=== PATIENT | female | born 1980 | race Hispanic/Latino ===

== ENCOUNTER 2017-01-04 21:08 | Emergency (ER) | payer OTHER ==
[2017-01-04 21:30] VITALS: BMI 35.3
[2017-01-04 21:37] VITALS: RESP 20; TEMP 98.4
--- NOTE | 2017-01-04 21:50 | ED PDOC ---
Arrival/HPI - General Chief Complaint: Cough, Cold, Congestion Time Seen by Provider: 01/04/17 21:50 - History of Present Illness Narrative History of Present Illness (Text): 01/04/17 21:50 Patient is a 36 y/o F presenting with cough x 5 days. She reports that she gets a similar cough yearly that she reports are "triggered by allergies." She denies fever, chills, chest pain, shortness of breath. She is requesting phenergen with codeine because she reports that she cannot sleep due to her cough. Past Medical History - Infectious Disease Hx of Infectious Diseases: None - Tetanus Immunization Tetanus Immunization: Unknown - Past Medical History Past Medical History: No Previous - Cardiac Hx Cardiac Disorders: No - Pulmonary Hx Asthma: Yes - Neurological Hx Migraine: Yes - HEENT Hx HEENT Disorder: No - Renal Hx Renal Disorder: No - Endocrine/Metabolic Hx Endocrine Disorders: No - Hematological/Oncological Hx Blood Disorders: No - Integumentary Hx Dermatological Disorder: No - Musculoskeletal/Rheumatological Hx Back Pain: Yes (chronic) - Gastrointestinal Hx Gastrointestinal Disorders: No - Genitourinary/Gynecological Hx Genitourinary Disorders: No - Psychiatric Hx Psychophysiologic Disorder: No Hx Substance Use: No - Past Surgical History Past Surgical History: No Previous - Anesthesia Hx Anesthesia: No Hx Anesthesia Reactions: No Hx Malignant Hyperthermia: No - Suicidal Assessment Feels Threatened In Home Enviroment: No Family/Social History Family/Social History: No Known Family HX Smoking Status: Heavy Smoker > 10 Cigarettes Daily Hx Alcohol Use: Yes Hx Substance Use: No Hx Substance Use Treatment: No Allergies/Home Meds Allergies/Adverse Reactions: Allergies No Known Allergies Allergy (Verified 10/13/15 19:21) Home Medications: Home Meds Medication Instructions Recorded Confirmed Oxycodone HCl [Oxycontin] 30 mg PO TID 07/04/15 10/13/15 Review of Systems - Review of Systems Constitutional: absent: Fatigue, Weight Change, Fevers Respiratory: Cough. absent: SOB, Sputum, Wheezing Cardiovascular: absent: Chest Pain, Palpitations, Edema, Calf Pain, WORLEY, Orthopnea, Syncope Gastrointestinal: absent: Abdominal Pain, Constipation, Diarrhea, Nausea, Vomiting Genitourinary Female: absent: Dysuria Musculoskeletal: absent: Arthralgias Skin: absent: Rash Physical Exam Vital Signs Temp Pulse Resp BP Pulse Ox 01/04/17 22:31 87 20 108/57 L 95 01/04/17 21:08 98.4 F 115 H 20 107/58 L 97 Temperature: Afebrile Blood Pressure: Normal Pulse: Regular Respiratory Rate: Normal Appearance: Positive for: Well-Appearing, Non-Toxic, Comfortable Pain Distress: None Mental Status: Positive for: Alert and Oriented X 3 - Systems Exam Head: Present: Atraumatic, Normocephalic Pupils: Present: PERRL Extroacular Muscles: Present: EOMI Conjunctiva: Present: Normal Mouth: Present: Moist Mucous Membranes Neck: Present: Normal Range of Motion Respiratory/Chest: Present: Clear to Auscultation, Good Air Exchange. No: Respiratory Distress, Accessory Muscle Use Cardiovascular: Present: Regular Rate and Rhythm, Normal S1, S2. No: Murmurs Abdomen: No: Tenderness, Distention Upper Extremity: Present: Normal Inspection Lower Extremity: Present: Normal Inspection Neurological: Present: GCS=15, CN II-XII Intact, Speech Normal Skin: Present: Warm, Dry. No: Rashes Psychiatric: Present: Alert, Oriented x 3 Medical Decision Making ED Course and Treatment: 01/04/17 22:22 Hung's symptoms are consistent with uri. She is afebrile and well appearing with lungs cta b/l with cough x 5 days. There are no indications for imaging. Patient is requesting cough medication and reports that she will follow-up with PMD - Medication Orders Current Medication Orders: Discontinued Medications Promethazine HCl/Codeine (Phenergan/Codeine Oral Syrup) 5 ml PO STAT STA Stop: 01/04/17 21:54 Last Admin: 01/04/17 22:08 Dose: 5 ml Disposition/Present on Arrival - Present on Arrival Any Indicators Present on Arrival: No History of DVT/PE: No History of Uncontrolled Diabetes: No Urinary Catheter: No History of Decub. Ulcer: No History Surgical Site Infection Following: None - Disposition Have Diagnosis and Disposition been Completed?: Yes Diagnosis: Cough Disposition: HOME/ ROUTINE Disposition Time: 21:51 Patient Plan: Discharge Condition: GOOD Discharge Instructions (ExitCare): Acute Cough (ED) Additional Instructions: Return immediately with any worsening symptoms. Follow-up with PMD within 2 days. Take medication as needed for cough Prescriptions: Promethazine/Codeine [Phenergan/Codeine Oral Syrup] 5 ml PO Q6 #1 bottle Referrals: Jerad Cabello JD, MD [Primary Care Provider] - Follow up with primary Forms: [facility] (Danish)
[2017-01-04] MEDS ORDERED: Promethazine/Cod 6.25mg-10mg/5ml Syr UD PO STA (21:53)
[2017-01-04 22:32] VITALS: BP 108/57; PULSE 87; O2SAT 95
== END 2017-01-04 22:33 | disposition home or self-care (01) ==
LOC: ED 21:08
DX: R05 Cough (principal)

== ENCOUNTER 2017-08-02 19:52 | Emergency (ER) | payer OTHER ==
[2017-08-02 20:24] VITALS: BMI 34.9
[2017-08-02 20:30] VITALS: TEMP 98.5
[2017-08-02 20:33] VITALS: O2SAT 99
--- NOTE | 2017-08-02 21:42 | ED PDOC ---
Arrival/HPI - General Chief Complaint: Female Genitourinary Time Seen by Provider: 08/02/17 21:39 Historian: Patient - History of Present Illness Narrative History of Present Illness (Text): 08/02/17 21:39 36yo female who present for evaluation of a lump protruding from her vagina this evening. Patient states she noticed a lump from her vagina this evening and had associated left flank pain. States the pain resolved after few minutes and the lump went back inside her vagina. She denies previous history, nausea, vomiting, diarrhea, fever, chills, urinary symptoms, any other complaint. Past Medical History - Provider Review Nursing Documentation Reviewed: Yes - Infectious Disease Hx of Infectious Diseases: None - Tetanus Immunization Tetanus Immunization: Unknown - Past Medical History Past Medical History: No Previous - Cardiac Hx Cardiac Disorders: No - Pulmonary Hx Asthma: Yes - Neurological Hx Migraine: Yes - HEENT Hx HEENT Disorder: No - Renal Hx Renal Disorder: No - Endocrine/Metabolic Hx Endocrine Disorders: No - Hematological/Oncological Hx Blood Disorders: No - Integumentary Hx Dermatological Disorder: No - Musculoskeletal/Rheumatological Hx Back Pain: Yes (chronic) - Gastrointestinal Hx Gastrointestinal Disorders: No - Genitourinary/Gynecological Hx Genitourinary Disorders: No - Psychiatric Hx Psychophysiologic Disorder: No Hx Substance Use: No - Past Surgical History Past Surgical History: No Previous - Anesthesia Hx Anesthesia: No Hx Anesthesia Reactions: No Hx Malignant Hyperthermia: No - Suicidal Assessment Feels Threatened In Home Enviroment: No Family/Social History - Physician Review Nursing Documentation Reviewed: Yes Family/Social History: Unknown Family HX Smoking Status: Heavy Smoker > 10 Cigarettes Daily Hx Alcohol Use: Yes Hx Substance Use: No Hx Substance Use Treatment: No Allergies/Home Meds Allergies/Adverse Reactions: Allergies No Known Allergies Allergy (Verified 08/02/17 20:24) Home Medications: Home Meds Medication Instructions Recorded Confirmed Oxycodone HCl [Oxycontin] 30 mg PO TID 07/04/15 08/02/17 Loratadine [Claritin] 10 mg PO PRN PRN 08/02/17 08/02/17 Review of Systems - Physician Review All systems were reviewed & negative as marked: Yes - Review of Systems Constitutional: Normal Eyes: Normal ENT: Normal Respiratory: Normal Cardiovascular: Normal Gastrointestinal: Abdominal Pain. absent: Constipation, Diarrhea, Nausea, Vomiting, Hematochezia, Hematemesis Genitourinary Female: Other (Vaginal bump) Musculoskeletal: Normal Skin: Normal Neurological: Normal Endocrine: Normal Hemo/Lymphatic: Normal Psychiatric: Normal Physical Exam Vital Signs Reviewed: Yes Vital Signs Temp Pulse Resp BP Pulse Ox 08/02/17 22:05 89 16 137/82 99 08/02/17 20:30 98.5 F 93 H 18 143/85 99 08/02/17 20:29 98.5 F 101 H 18 143/85 98 Temperature: Afebrile Blood Pressure: Normal Pulse: Regular Respiratory Rate: Normal Appearance: Positive for: Well-Appearing, Non-Toxic, Comfortable Pain Distress: None Mental Status: Positive for: Alert and Oriented X 3 - Systems Exam Head: Present: Atraumatic, Normocephalic Pupils: Present: PERRL Extroacular Muscles: Present: EOMI Conjunctiva: Present: Normal Mouth: Present: Moist Mucous Membranes Neck: Present: Normal Range of Motion Respiratory/Chest: Present: Clear to Auscultation, Good Air Exchange. No: Respiratory Distress, Accessory Muscle Use Cardiovascular: Present: Regular Rate and Rhythm, Normal S1, S2. No: Murmurs Abdomen: Present: Normal Bowel Sounds, Other (Soft). No: Tenderness, Distention , Peritoneal Signs, Rebound, Guarding, McBurney's Point Tender, Rovsing's Sign Present Genitourinary/Pelvic Exam: Present: Normal External Genitalia. No: Vaginal Discharge, Vaginal Bleeding, Vaginal Lesions Back: Present: Normal Inspection Upper Extremity: Present: Normal Inspection. No: Cyanosis, Edema Lower Extremity: Present: Normal Inspection. No: Edema Neurological: Present: GCS=15, CN II-XII Intact, Speech Normal Skin: Present: Warm, Dry, Normal Color. No: Rashes Psychiatric: Present: Alert, Oriented x 3, Normal Insight, Normal Concentration Disposition/Present on Arrival - Present on Arrival Any Indicators Present on Arrival: No History of DVT/PE: No History of Uncontrolled Diabetes: No Urinary Catheter: No History of Decub. Ulcer: No History Surgical Site Infection Following: None - Disposition Have Diagnosis and Disposition been Completed?: Yes Diagnosis: Normal vaginal exam, Vaginal prolapse Disposition: HOME/ ROUTINE Disposition Time: 21:45 Patient Plan: Discharge Condition: STABLE Additional Instructions: Follow up with your CONTROL CLERK [employer] Return to ED for any new symptoms Referrals: Jerad Cabello JD, MD [Primary Care Provider] - Follow up with primary Forms: [facility] (Swedish)
[2017-08-02 22:06] VITALS: BP 137/82; PULSE 89; RESP 16
== END 2017-08-02 22:06 | disposition home or self-care (01) ==
LOC: ED 19:52
DX: N81.10 Cystocele, unspecified (principal)

== ENCOUNTER 2018-05-17 00:03 | Emergency (ER) | payer OTHER ==
[2018-05-17 00:19] VITALS: BMI 40.8
[2018-05-17 00:23] VITALS: TEMP 99.8
[2018-05-17] MEDS ORDERED: Sodium Chloride 0.9% 1,000 ML IV STA (00:54)
[2018-05-17] MEDS ORDERED: Morphine 4 mg/ml ISec IVP STA (00:54)
[2018-05-17 01:23] LABS: BASO # 0.02 K/mm3 (0.0-2.0); BASO % 0.3 % (0.0-3.0); EOS # 0.1 (0.0-0.7); EOS % 0.8 % (1.5-5.0); GRAN # 4.46 (1.4-6.5); GRAN % 62.6 % (50.0-68.0); LYMPH # 1.9 (1.2-3.4); LYMPH % 26.1 % (22.0-35.0); MEAN CELL VOLUME 90.2 fl (80.0-105.0); MEAN CORPUSCULAR HEMOGLOBIN 29.8 pg (25.0-35.0); MEAN PLATELET VOLUME 9.7 fl (7.0-11.0); MONO # 0.7 (0.1-0.6); MONO % 10.2 % (1.0-6.0); RBC 4.7 10^6/uL (3.5-6.1); RED CELL DISTRIBUTION WIDTH 12.1 % (11.5-14.5); WHITE BLOOD COUNT 7.1 10^3/uL (4.5-11.0)
[2018-05-17 01:26] LABS: ALB/GLOB RATIO 1.2 (1.1-1.8); ALBUMIN 4.3 g/dL (3.0-4.8); ALT/SGPT 29 U/L (7-56); AST/SGOT 26 U/L (14-36); BLOOD UREA NITROGEN 9 mg/dL (7-21); CALCIUM 10.1 mg/dL (8.4-10.5); GFR NON-AFRICAN AMERICAN > 60
[2018-05-17 02:20] LABS: OPIATES, UR NEGATIVE (NEGATIVE)
[2018-05-17 02:37] LABS: BARBITURATES, UR NEGATIVE (NEGATIVE); BENZODIAZEPINES, UR NEGATIVE (NEGATIVE); PHENCYCLIDINE, UR NEGATIVE (NEGATIVE)
--- NOTE | 2018-05-17 03:21 | ED PDOC ---
Arrival/HPI - General Chief Complaint: Medical Clearance Time Seen by Provider: 05/17/18 00:11 Historian: Patient - History of Present Illness Narrative History of Present Illness (Text): 05/17/18 04:32 37 year old female, with no significant past medical history, presents to the emergency department with body aches, diarrhea, and nausea, for a day and a half. Patient informs that she takes oxycodone 3-4 times a day for the past several years. Patient states she recently moved and hasn't taken it for a day and a half. Patient states her appetite has been fair and denies any recent travel or sick contact. Patient denies any fever, cough, vomiting, or any other complaints. Time/Duration: Prior to Arrival, 24 hours Symptom Onset: Gradual Symptom Course: Unchanged Quality: Aching Activities at Onset: Light Past Medical History - Provider Review Nursing Documentation Reviewed: Yes - Infectious Disease Hx of Infectious Diseases: None - Tetanus Immunization Tetanus Immunization: Unknown - Past Medical History Past Medical History: No Previous - Cardiac Hx Cardiac Disorders: No - Pulmonary Hx Asthma: Yes - Neurological Hx Migraine: Yes - HEENT Hx HEENT Disorder: No - Renal Hx Renal Disorder: No - Endocrine/Metabolic Hx Endocrine Disorders: No - Hematological/Oncological Hx Blood Disorders: No - Integumentary Hx Dermatological Disorder: No - Musculoskeletal/Rheumatological Hx Back Pain: Yes (chronic) - Gastrointestinal Hx Gastrointestinal Disorders: No - Genitourinary/Gynecological Hx Genitourinary Disorders: No - Psychiatric Hx Psychophysiologic Disorder: No Hx Substance Use: No - Past Surgical History Past Surgical History: No Previous - Anesthesia Hx Anesthesia: No Hx Anesthesia Reactions: No Hx Malignant Hyperthermia: No - Suicidal Assessment Feels Threatened In Home Enviroment: No Family/Social History - Physician Review Nursing Documentation Reviewed: Yes Family/Social History: No Known Family HX Smoking Status: Heavy Smoker > 10 Cigarettes Daily Hx Alcohol Use: Yes Hx Substance Use: No Hx Substance Use Treatment: No Allergies/Home Meds Allergies/Adverse Reactions: Allergies No Known Allergies Allergy (Verified 05/17/18 00:19) Home Medications: Home Meds Medication Instructions Recorded Confirmed Oxycodone HCl [Oxycontin] 30 mg PO TID 07/04/15 05/17/18 Loratadine [Claritin] 10 mg PO PRN PRN 08/02/17 05/17/18 Review of Systems - Physician Review All systems were reviewed & negative as marked: Yes - Review of Systems Constitutional: Other (body aches). absent: Fevers Respiratory: absent: Cough Gastrointestinal: Diarrhea, Nausea. absent: Vomiting Physical Exam Vital Signs Reviewed: Yes Vital Signs Temp Pulse Resp BP Pulse Ox 05/17/18 00:22 99.8 F H 86 18 151/90 H 98 Temperature: Febrile Blood Pressure: Normal Pulse: Regular Respiratory Rate: Normal Appearance: Positive for: Well-Appearing, Non-Toxic, Comfortable Pain Distress: Mild Mental Status: Positive for: Alert and Oriented X 3 - Systems Exam Head: Present: Atraumatic, Normocephalic Pupils: Present: PERRL Extroacular Muscles: Present: EOMI Conjunctiva: Present: Normal Mouth: Present: Moist Mucous Membranes Neck: Present: Normal Range of Motion Respiratory/Chest: Present: Clear to Auscultation, Good Air Exchange. No: Respiratory Distress, Accessory Muscle Use Cardiovascular: Present: Regular Rate and Rhythm, Normal S1, S2. No: Murmurs Abdomen: No: Tenderness, Distention, Peritoneal Signs Back: Present: Normal Inspection Upper Extremity: Present: Normal Inspection. No: Cyanosis, Edema Lower Extremity: Present: Normal Inspection. No: Edema Neurological: Present: GCS=15, CN II-XII Intact, Speech Normal Skin: Present: Warm, Dry, Normal Color. No: Rashes Psychiatric: Present: Alert, Oriented x 3, Normal Insight, Normal Concentration Medical Decision Making ED Course and Treatment: 05/17/18 04:00 Impression: 37 year old female presents with body aches, nausea, and diarrhea Plan: -- Morphine -- Zofran -- Reassess and disposition Prior Visits: Notes and results from previous visits were reviewed. Progress Notes: 05/17/18 04:40 Upon reevaluation, patient states she is feeling better. I have instructed her to call Dr Cabello in the morning for possible medication refill. - Lab Interpretations Lab Results: Total Bilirubin 0.4 mg/dL (0.2-1.3) 05/17/18 01:05 AST 26 U/L (14-36) 05/17/18 01:05 ALT 29 U/L (7-56) 05/17/18 01:05 Alkaline Phosphatase 79 U/L (38-126) 05/17/18 01:05 Total Protein 7.8 g/dL (5.8-8.3) 05/17/18 01:05 Albumin 4.3 g/dL (3.0-4.8) 05/17/18 01:05 Globulin 3.5 gm/dL 05/17/18 01:05 Albumin/Globulin Ratio 1.2 (1.1-1.8) 05/17/18 01:05 - Medication Orders Current Medication Orders: Discontinued Medications Sodium Chloride (Sodium Chloride 0.9%) 1,000 mls @ 999 mls/hr IV .Q1H1M STA Stop: 05/17/18 01:54 Last Admin: 05/17/18 01:09 Dose: 999 mls/hr eMAR Start Stop Document 05/17/18 01:09 CNR (Rec: 05/17/18 01:09 CNR [id number]) Intravenous Solution Start Date 05/17/18 Start Time 01:09 End Date 05/17/18 End time 02:09 Total Infusion Time 60 Morphine Sulfate (Morphine) 4 mg IVP STAT STA Stop: 05/17/18 00:55 Last Admin: 05/17/18 01:09 Dose: 4 mg MAR Pain Assessment Document 05/17/18 01:09 CNR (Rec: 05/17/18 01:09 CNR [id number]) Pain Reassessment Is this a pain reassessment? No IVP Administration Document 05/17/18 01:09 CNR (Rec: 05/17/18 01:09 CNR [id number]) Charges for Administration # of IVP Administrations 1 Ondansetron HCl (Zofran Inj) 4 mg IVP STAT STA Stop: 05/17/18 00:55 Last Admin: 05/17/18 01:09 Dose: 4 mg IVP Administration Document 05/17/18 01:09 CNR (Rec: 05/17/18 01:09 CNR [id number]) Charges for Administration # of IVP Administrations 1 - Scribe Statement The provider has reviewed the documentation as recorded by the Markiblong Sauer Provider Scribe Attestation: All medical record entries made by the Scribe were at my direction and personally dictated by me. I have reviewed the chart and agree that the record accurately reflects my personal performance of the history, physical exam, m edical decision making, and the department course for this patient. I have also personally directed, reviewed, and agree with the discharge instructions and disposition. Disposition/Present on Arrival - Present on Arrival Any Indicators Present on Arrival: No History of DVT/PE: No History of Uncontrolled Diabetes: No Urinary Catheter: No History of Decub. Ulcer: No History Surgical Site Infection Following: None - Disposition Have Diagnosis and Disposition been Completed?: Yes Diagnosis: Chronic pain Disposition: HOME/ ROUTINE Disposition Time: 02:30 Condition: IMPROVED Discharge Instructions (ExitCare): Chronic Pain Additional Instructions: DUDLEY MALONE, thank you for letting us take care of you today. Your provider was Bruce Venegas DO and you were treated for BODY PAIN. The emergency medical care you received today was directed at your acute symptoms. If you were prescribed any medication, please fill it and take as directed. It may take several days for your symptoms to resolve. Return to the Emergency Department if your symptoms worsen, do not improve, or if you have any other problems. Please contact your doctor or call one of the physicians/clinics you have been referred to that are listed on the Patient Visit Information form that is included in your discharge packet. Bring any paperwork you were given at discharge with you along with any medications you are taking to your follow up visit. Our treatment cannot replace ongoing medical care by a primary care provider outside of the emergency department. Thank you for allowing the [facility] team to be part of your care today. Please call Dr. Cabello tomorrow morning for follow up and pain management. Referrals: Jerad Cabello JD, MD [Primary Care Provider] - Follow up with primary Forms: [employer] ([place]ian), WORK NOTE
[2018-05-17 03:45] VITALS: BP 138/86; PULSE 74; RESP 20; O2SAT 97
== END 2018-05-17 04:00 | disposition home or self-care (01) ==
LOC: ED 00:03
DX: G89.29 Other chronic pain (principal); J45.909 Unspecified asthma, uncomplicated; F17.210 Nicotine dependence, cigarettes, uncomplicated
CPT/HCPCS: 80053; 80324; 80345; 80346; 80349; 80353; 80358; 80361; 83992; 85025; 87804; 96361; 96374; 96375; 99283; J2270; J2405; J7030

== ENCOUNTER 2018-05-17 08:13 | Emergency (ER) | payer OTHER ==
[2018-05-17 08:13] VITALS: BMI 40.8
[2018-05-17] MEDS ORDERED: Sodium Chloride 0.9% 1,000 ML IV STA (08:38)
[2018-05-17] MEDS ORDERED: Morphine 4 mg/ml ISec IVP STA (08:40)
--- NOTE | 2018-05-17 08:45 | ED PDOC ---
Arrival/HPI <Pasquale Mars - Last Filed: 05/17/18 10:52> - General Historian: Patient - History of Present Illness Narrative History of Present Illness (Text): Patient is a 37 F who presents with nausea vomiting and epigastric pain over the past 36 hours. Patient states that she has been unable to find her oxycodone 30 mg as she is moving and has lost track of the box they are in. She has not taken any in several days. The patient was recently here in our ER earlier this morning and indicates that while she was feeling better when she left she began to have n/v again upon returning home and had several episodes before passing out in her bathroom while at the toilet. Patient states she was found by her sister and her son and does not remember if she hit her head when losing consciousness. She indicates having one loose watery BM while at home as well. She does endorse HEALY as well as epigastric pain and nausea. Patient denies chest pain, hematemesis, dysuria, hematochezia, recent travel, new foods and extremity pain/weakness. 05/17/18 08:42 Time/Duration: Prior to Arrival, 24 hours Symptom Onset: Sudden Symptom Course: Unchanged Quality: Unable to Describe Severity Level: 5 Associated Symptoms (Text): nausea, vomiting 05/17/18 08:55 <Amanda Oliveira - Last Filed: 05/17/18 12:22> - General Chief Complaint: Abdominal Pain Time Seen by Provider: 05/17/18 08:30 Past Medical History - Provider Review Nursing Documentation Reviewed: Yes - Infectious Disease Hx of Infectious Diseases: None - Tetanus Immunization Tetanus Immunization: Unknown - Past Medical History Past Medical History: No Previous - Cardiac Hx Cardiac Disorders: No - Pulmonary Hx Asthma: Yes - Neurological Hx Migraine: Yes - HEENT Hx HEENT Disorder: No - Renal Hx Renal Disorder: No - Endocrine/Metabolic Hx Endocrine Disorders: No - Hematological/Oncological Hx Blood Disorders: No - Integumentary Hx Dermatological Disorder: No - Musculoskeletal/Rheumatological Hx Back Pain: Yes (chronic) - Gastrointestinal Hx Gastrointestinal Disorders: No - Genitourinary/Gynecological Hx Genitourinary Disorders: No - Psychiatric Hx Psychophysiologic Disorder: No Hx Substance Use: No - Past Surgical History Past Surgical History: No Previous - Anesthesia Hx Anesthesia: No Hx Anesthesia Reactions: No Hx Malignant Hyperthermia: No - Suicidal Assessment Feels Threatened In Home Enviroment: No <Amanda Oliveira Last Filed: 05/17/18 12:22> Family/Social History - Physician Review Nursing Documentation Reviewed: Yes Family/Social History: Unknown Family HX Smoking Status: Heavy Smoker > 10 Cigarettes Daily Hx Alcohol Use: Yes Hx Substance Use: No Hx Substance Use Treatment: No <Amanda Oliveira - Last Filed: 05/17/18 12:22> Allergies/Home Meds <Pasquale Mars - Last Filed: 05/17/18 10:52> <Amanda Oliveira Last Filed: 05/17/18 12:22> Allergies/Adverse Reactions: Allergies No Known Allergies Allergy (Verified 05/17/18 00:19) Home Medications: Home Meds Medication Instructions Recorded Confirmed Oxycodone HCl [Oxycontin] 30 mg PO TID 07/04/15 05/17/18 Loratadine [Claritin] 10 mg PO PRN PRN 08/02/17 05/17/18 Review of Systems - Physician Review All systems were reviewed & negative as marked: Yes - Review of Systems Constitutional: absent: Fatigue, Fevers, Night Sweats Respiratory: SOB. absent: Cough Cardiovascular: absent: Chest Pain Gastrointestinal: Abdominal Pain, Stool Changes, Diarrhea, Nausea, Vomiting. absent: Hematochezia, Hematemesis Genitourinary Female: absent: Dysuria, Frequency Musculoskeletal: Back Pain (chronic lumbar) Neurological: Headache <Amanda Oliveira Last Filed: 05/17/18 12:22> Physical Exam Vital Signs Temp Pulse Resp BP Pulse Ox 05/17/18 08:13 98.4 F 85 18 144/94 H 98 <Pasquale Mars - Last Filed: 05/17/18 10:52> Vital Signs Reviewed: Yes Vital Signs Temp Pulse Resp BP Pulse Ox 05/17/18 08:13 98.4 F 85 18 144/94 H 98 Temperature: Afebrile Blood Pressure: Normal Pulse: Regular Respiratory Rate: Normal Appearance: Positive for: Non-Toxic, Uncomfortable Pain Distress: Moderate Mental Status: Positive for: Alert and Oriented X 3 - Systems Exam Head: Present: Atraumatic, Normocephalic Pupils: Present: PERRL Extroacular Muscles: Present: EOMI Mouth: Present: Moist Mucous Membranes Respiratory/Chest: No: Respiratory Distress, Accessory Muscle Use Cardiovascular: Present: Regular Rate and Rhythm, Normal S1, S2. No: Tachycardic Abdomen: Present: Tenderness (mild epigastric). No: Distention, Peritoneal Signs, Rebound, Guarding Upper Extremity: Present: Normal Inspection, NORMAL PULSES. No: Cyanosis, Edema Lower Extremity: Present: Normal Inspection, NORMAL PULSES. No: Edema, CALF TENDERNESS Neurological: Present: GCS=15, CN II-XII Intact, Speech Normal Skin: Present: Warm, Dry, Normal Color. No: Rashes Psychiatric: Present: Alert, Oriented x 3, Normal Insight, Normal Concentration, Anxious <TeeAmanda - Last Filed: 05/17/18 12:22> Medical Decision Making ED Course and Treatment: 05/17/18 10:52 37 year old female presenting to the emergency department complaining of abdominal pain with associated nausea and vomiting. In agreement with resident note, which includes further HPI details. Patient was seen and evaluated with resident, came up with plan and treatment together. - RAD Interpretation Narrative RAD Interpretations (Text): 05/17/18 09:58 ekg my read: nsr at 80 bpm, nml qrs, nml axis, no acute sttw abn Radiology Orders: 05/17/18 08:45 HEAD W/O CONTRAST [CT] Stat 05/17/18 08:48 ABDOMEN (FLAT PLATE) 1VIEW [RAD] Stat - Medication Orders Current Medication Orders: Discontinued Medications Dicyclomine HCl (Bentyl) 10 mg PO ONCE ONE Stop: 05/17/18 08:48 Last Admin: 05/17/18 09:07 Dose: 10 mg Sodium Chloride (Sodium Chloride 0.9%) 1,000 mls @ 999 mls/hr IV .Q1H1M STA Stop: 05/17/18 09:38 Last Admin: 05/17/18 08:54 Dose: 999 mls/hr eMAR Start Stop Document 05/17/18 08:54 SRE (Rec: 05/17/18 08:55 SRE [facility] [id number] Intravenous Solution Start Date 05/17/18 Start Time 08:45 End Date 05/17/18 End time 09:45 Total Infusion Time 60 Ibuprofen (Motrin Tab) 400 mg PO STAT STA Stop: 05/17/18 08:47 Last Admin: 05/17/18 09:07 Dose: 400 mg MAR Pain/Vitals Document 05/17/18 09:07 SRE (Rec: 05/17/18 09:07 SRE [facility] [id number] Pain Reassessment Is This A Pain ReAssessment? Yes Sleep Is patient sleeping during reassessment? No Presence of Pain Presence of Pain Yes Ondansetron HCl (Zofran Inj) 4 mg IVP STAT STA Stop: 05/17/18 08:39 Last Admin: 05/17/18 08:56 Dose: 4 mg IVP Administration Document 05/17/18 08:56 SRE (Rec: 05/17/18 08:56 SRE [facility] [id number] Charges for Administration # of IVP Administrations 1 <Pasquale Mars - Last Filed: 05/17/18 10:52> ED Course and Treatment: Patient spoke with her primary care physician Dr. Cabello who indicated that she will be unable to obtain another prescription for her home Oxycodone Discussed with patient that we cannot continue to give her norcotic/opioid pain medication because she will withdraw after leaving the ER and we are not able to write her a new prescription for Oxycodone for health and safety reasons. BP elevated, clonidine 0.1 mg not given as BP had decreased to 130s/ 80s 05/17/18 11:35 Reassessment Condition: Re-examined, Unchanged - Lab Interpretations Interpretation: No clinic. lab abnormalty - RAD Interpretation Narrative RAD Interpretations (Text): CT head: no acute intracranial abnormality, left mastoid effusion with soft tissue in the left middle ear cavity which may represent acute and or chronic mastoiditis and otitis media. Small right mastoid effusion. Chronic ethmoid sinusitis Abd Xray: no active disease 05/17/18 11:17 Vending Machine Technician: Radiologist - Medication Orders Current Medication Orders: Sodium Chloride (Sodium Chloride 0.9%) 1,000 mls @ 999 mls/hr IV .Q1H1M STA Stop: 05/17/18 09:38 Ondansetron HCl (Zofran Inj) 4 mg IVP STAT STA Stop: 05/17/18 08:39 <Amanda Oliveira - Last Filed: 05/17/18 12:22> - PA / [employer] / Resident Statement / has reviewed & agrees with the documentation as recorded. / has examined the patient and agrees with the treatment plan. - Scribe Statement The provider has reviewed the documentation as recorded by the Scribe Yolanda Mccarty All medical record entries made by the Scribe were at my direction and personally dictated by me. I have reviewed the chart and agree that the record accurately reflects my personal performance of the history, physical exam, medical decision making, and the department course for this patient. I have also personally directed, reviewed, and agree with the discharge instructions and disposition. <Pasquale Mars - Last Filed: 05/17/18 10:52> Disposition/Present on Arrival <Pasquale Mars - Last Filed: 05/17/18 10:52> - Present on Arrival Any Indicators Present on Arrival: No History of DVT/PE: No History of Uncontrolled Diabetes: No Urinary Catheter: No History of Decub. Ulcer: No History Surgical Site Infection Following: None - Disposition Have Diagnosis and Disposition been Completed?: Yes Disposition Time: 12:11 Patient Plan: Discharge <Amanda Oliveira - Last Filed: 05/17/18 12:22> - Disposition Diagnosis: Narcotic dependence, in remission Disposition: HOME/ ROUTINE Patient Problems: Current Active Problems Problem Status Onset Narcotic dependence, in remission Acute Condition: FAIR Discharge Instructions (ExitCare): Prescription Drug Abuse (DC) Additional Instructions: Please follow up with your primary care physician Dr. Jerad Cabello within 3-5 days of discharge. If your symptoms worsen or new symptoms occur please return to the nearest ED for evaluation. Referrals: Jerad Cabello JD, MD [Primary Care Provider] - Follow up with primary Forms: [employer] (Micronesian)
--- NOTE | 2018-05-17 10:46 | CT ---
Date of service: 05/17/2018 PROCEDURE: CT HEAD WITHOUT CONTRAST. HISTORY: LOC COMPARISON: None available. TECHNIQUE: Axial computed tomography images were obtained through the head/brain without intravenous contrast. Radiation dose: Total exam DLP = 915.95 mGy-cm. This CT exam was performed using one or more of the following dose reduction techniques: Automated exposure control, adjustment of the mA and/or kV according to patient size, and/or use of iterative reconstruction technique. FINDINGS: HEMORRHAGE: No intracranial hemorrhage. BRAIN: Rob-white matter differentiation is preserved. There is no mass, mass effect or abnormal extra-axial fluid collection. There is no territorial infarction. The midline sagittal structures are normal. VENTRICLES: The ventricles are normal in size, shape and configuration. CALVARIUM: There is no calvarial fracture or extracranial soft tissue swelling. PARANASAL SINUSES: There is mild mucoperiosteal thickening in the ethmoid air cells and left mastoid effusion. There is also soft tissue in the left middle ear cavity. There is a small right mastoid effusion, the remaining included paranasal sinuses are clear. MASTOID AIR CELLS: Predominantly clear. OTHER FINDINGS: None. IMPRESSION: No acute intracranial abnormality. Left mastoid effusion and soft tissue in the left middle ear cavity which may represent acute and/or chronic mastoiditis and otitis media. Small right mastoid effusion. Chronic ethmoid sinusitis
[2018-05-17 11:04] VITALS: TEMP 99.4
--- NOTE | 2018-05-17 11:09 | RAD ---
Date of service: 05/17/2018 HISTORY: abd pain COMPARISON: None available. FINDINGS: BOWEL: Normal. No obstruction. No free air. BONES: Normal. OTHER FINDINGS: None. IMPRESSION: No active disease.
[2018-05-17 12:04] VITALS: BP 139/97; PULSE 86; RESP 18; O2SAT 97
--- NOTE | 2018-05-17 20:43 | CARD ---
APPROVED REPORT Date of service: 05/17/2018 EKG Measurement Heart [id number] <Conclusion> Normal sinus rhythm Normal ECG
== END 2018-05-17 12:25 | disposition home or self-care (01) ==
LOC: ED 08:13
DX: F11.21 Opioid dependence, in remission (principal); J45.909 Unspecified asthma, uncomplicated; F17.210 Nicotine dependence, cigarettes, uncomplicated
CPT/HCPCS: 70450; 74018; 93005; 96361; 96374; 99284; J2405; J7030